=== PATIENT | male | born 2000 | race Two or more races ===

== ENCOUNTER 2020-05-31 23:01 | Emergency (ER) | payer OTHER ==
[~2020-05-31] VITALS: Ht 167.6 cm; Wt 61.4 kg
[2020-05-31 23:03] VITALS: BP 120/72
--- NOTE | 2020-05-31 23:45 | NUR ---
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
[2020-05-31 23:53] LABS: CLARITY,URINE CLEAR (Clear); COLOR,URINE YELLOW (Yellow); GLUCOSE, URINE NEGATIVE (Neg); KETONES,URINE NEGATIVE (Neg); LEUKOCYTE ESTERASE ,URINE NEGATIVE (Neg); NITRITES, URINE NEGATIVE (Neg); OCCULT BLOOD,URINE NEGATIVE (Neg); PROTEIN,URINE NEGATIVE (Neg); UROBILINOGEN,URINE 0.2 E.U/dL (0.2-1.0)
[2020-05-31 23:54] LABS: UA COLLECTION TYPE CLN CATCH MIDSTREAM
[2020-06-01] MEDS ORDERED: DOXYCYCLINE 100MG CAPSULE PO STA (00:07)
[2020-06-01] MEDS ORDERED: CefTRIAXone 250MG IM Kit w/LIDOcaine IM ONE (00:10)
[2020-06-01] MEDS ORDERED: DOXY100T56 PO (00:13)
== END 2020-06-01 00:41 | disposition home or self-care (01) ==
LOC: ER 23:02
DX: N45.1 Epididymitis (principal); R11.0 Nausea; Z79.899 Other long term (current) drug therapy
CPT/HCPCS: 36415; 76870; 81003; 87491; 87591; 96372; 99284; J0696